=== PATIENT | male | born 1970 | race Caucasian/White ===

== ENCOUNTER 2019-01-29 23:33 | Emergency (ER) | payer MEDICAID ==
[~2019-01-29] VITALS: Ht 190.5 cm; Wt 100.0 kg
[~2019-01-29 23:33] MED LIST: RIVA15TA PO
[2019-01-29 23:35] VITALS: BP 162/101
[2019-01-29] MEDS ORDERED: LIDOcaine Viscous 15ml cup PO ONE (23:55)
[2019-01-29] MEDS ORDERED: mag hydrox/Alum hydrox/simeth 30ml oral suspension PO ONE (23:55)
[2019-01-29] MEDS ORDERED: pantoprazole 40mg Tablet.DR PO ONE (23:55)
[2019-01-30] MEDS ORDERED: PANT-47 PO (00:03)
--- NOTE | 2019-01-30 00:16 | NUR ---
Patient was give GI cocktail for epigastric pain, patient report some relief now.
[2019-01-30 00:21] LABS: BASOPHILS # (AUTO) 0.1 X10'3 (0-0.2); EOSINOPHILS # (AUTO) 0.2 X10'3 (0-0.9); EOSINOPHILS % (AUTO) 2.4 % (0-6); HEMATOCRIT 44.1 % (42.0-52.0); MEAN CORPUSCULAR HEMOGLOBIN 30.6 PG (27.0-31.0); MEAN CORPUSCULAR VOLUME 89.8 FL (78-98); MONOCYTES # (AUTO) 0.7 X10'3 (0-0.9); MONOCYTES % (AUTO) 8.4 % (2-12); NEUTROPHILS % (AUTO) 63.2 % (42-75); PLATELET COUNT 214 X10'3 (140-440); RED BLOOD COUNT 4.91 X10'6 (4.70-6.10); RED CELL DISTRIBUTION WIDTH 13.4 % (11.5-14.5); WHITE BLOOD COUNT 7.9 X10'3 (4.5-11.0)
--- NOTE | 2019-01-30 00:28 | NUR ---
Per JONAH Patel no need for UA.
[2019-01-30 00:31] LABS: ALANINE AMINOTRANSFERASE 46 U/L (12-78); ALBUMIN/GLOBULIN RATIO 1.1 (1.1-1.5); ALKALINE PHOSPHATASE 68 IU/L (46-116); ANION GAP 11 (8-16); ASPARTATE AMINO TRANSFERASE 11 U/L (10-37); BILIRUBIN,TOTAL 0.4 MG/DL (0.1-1.0); BLOOD UREA NITROGEN 24 MG/DL (7-18); BUN/CREATININE RATIO 16.9 (5.4-32.0); CALCIUM 9.1 MG/DL (8.5-10.1); CHLORIDE 101 MMOL/L (99-107); CREATININE 1.42 MG/DL (0.60-1.10); GLUCOSE 103 MG/DL (70-104); LIPASE 276 U/L (73-393); POTASSIUM 4.1 MMOL/L (3.5-5.1); SODIUM 139 MMOL/L (135-145); TOTAL CARBON DIOXIDE 27.3 MMOL/L (24-32); TOTAL PROTEIN 7.7 G/DL (6.4-8.2); eGFR 53 ML/MIN
== END 2019-01-30 01:01 | disposition home or self-care (01) ==
LOC: ER 23:33
DX: K29.00 Acute gastritis without bleeding (principal); Z86.718 Personal history of other venous thrombosis and embolism; Z79.899 Other long term (current) drug therapy
CPT/HCPCS: 36415; 80053; 83690; 84484; 85025; 85610; 93005; 99284

== ENCOUNTER 2022-02-12 10:52 | Emergency (ER) | payer MEDICAID ==
[~2022-02-12] VITALS: Ht 190.5 cm; Wt 104.5 kg
[~2022-02-12 10:52] MED LIST changes: +PANT-47 PO
--- NOTE | 2022-02-12 14:07 | NUR ---
Dr Gary in room with patient Addendum: 02/12/[address] at [address] Perdomo
[2022-02-12] MEDS ORDERED: normal saline 1000ML IV soln IVB ONE (14:20)
[2022-02-12] MEDS ORDERED: dexamethasone sod phosphate 10mg/ml inj IV STA (14:41)
[2022-02-12] MEDS ORDERED: REMDESIVIR INJ 200 MG in normal saline 100ml IV soln 100 ML IV ONE (14:45)
[2022-02-12 14:59] LABS: BASOPHILS # (AUTO) 0.1 X10'3 (0-0.2); BASOPHILS % (AUTO) 0.6 % (0-1); EOSINOPHILS % (AUTO) 0 % (0-6); HEMATOCRIT 48.6 % (42.0-52.0); HEMOGLOBIN 16.6 g/dl (14.0-17.9); LYMPHOCYTES # (AUTO) 0.7 X10'3 (1.1-4.8); LYMPHOCYTES % (AUTO) 6.2 % (21-51); MEAN CORPUSCULAR HEMOGLOBIN 30.6 PG (27.0-31.0); MEAN PLATELET VOLUME 7.8 FL (7.4-10.4); MONOCYTES # (AUTO) 1.3 X10'3 (0-0.9); MONOCYTES % (AUTO) 12.6 % (2-12); NEUTROPHILS # (AUTO) 8.5 X10'3 (1.8-7.7); NEUTROPHILS % (AUTO) 80.6 % (42-75); PLATELET COUNT 189 X10'3 (140-440); RED BLOOD COUNT 5.41 X10'6 (4.70-6.10); RED CELL DISTRIBUTION WIDTH 13.8 % (11.5-14.5); WHITE BLOOD COUNT 10.5 X10'3 (4.5-11.0)
[2022-02-12] MEDS ORDERED: acetaminophen 325mg tablet PO ONE (15:05)
[2022-02-12 15:12] LABS: ALANINE AMINOTRANSFERASE 60 U/L (12-78); ALBUMIN 4.3 G/DL (3.4-5.0); ALKALINE PHOSPHATASE 76 IU/L (46-116); ANION GAP 8 (8-16); ASPARTATE AMINO TRANSFERASE 26 U/L (10-37); BILIRUBIN,TOTAL 0.7 MG/DL (0.1-1.0); BLOOD UREA NITROGEN 16 MG/DL (7-18); BUN/CREATININE RATIO 13.7 (5.4-32.0); CALCIUM 9.1 MG/DL (8.5-10.1); CHLORIDE 101 MMOL/L (99-107); CREATININE 1.17 MG/DL (0.60-1.10); GLUCOSE 117 MG/DL (70-104); POTASSIUM 4.4 MMOL/L (3.5-5.1); SODIUM 139 MMOL/L (135-145); TOTAL CARBON DIOXIDE 29.9 MMOL/L (24-32); TOTAL PROTEIN 8.6 G/DL (6.4-8.2); eGFR 65 ML/MIN
--- NOTE | 2022-02-12 15:20 | NUR ---
Pt back from CT scan. Contacted pharm for Remdesivir, awaiting id approval per pharm
--- NOTE | 2022-02-12 15:28 | NUR ---
Positive covid confirmed via nasal swab. Dr Perdomo aware. Isolation cart provided infront of room. Pt is alwake, alert and orientedx4. Bx culturs/Procal drawn for fever. Tylenol given. Pt updated on tx plan. Monitoring ongoing
[2022-02-12] MEDS ORDERED: BUDE90AE IH (16:11)
[2022-02-12] MEDS ORDERED: DEXA6TAB6 PO (16:11)
[2022-02-12] MEDS ORDERED: BEBTELOVIMAB 175 MG/2 ML VIAL IV ONE (16:20)
[2022-02-12] MEDS ORDERED: LIDOcaine Viscous 15ml cup MM PRN (16:25)
--- NOTE | 2022-02-12 17:04 | NUR ---
Patient's temp >101, Dr Perdomo made aware. Pt received tylenol about an hr ago.
--- NOTE | 2022-02-12 17:38 | NUR ---
Pt's mother- Azul contacted to pick patient up at 1810 when discharged
[2022-02-12 18:34] VITALS: BP 130/88
== END 2022-02-12 18:40 | disposition home or self-care (01) ==
LOC: ER 10:54
DX: U07.1 COVID-19 (principal); R55 Syncope and collapse; Z79.899 Other long term (current) drug therapy
CPT/HCPCS: 36415; 71275; 80053; 83605; 83880; 84145; 84484; 85025; 87040; 87502; 87503; 93005; 96374; 99285; J1100; J3490; J7030; M0222; Q0222

== ENCOUNTER 2023-08-12 04:04 | Emergency (ER) | payer MEDICAID ==
[~2023-08-12] VITALS: Ht 193 cm; Wt 107.7 kg
[~2023-08-12 04:04] MED LIST changes: +BUDE90AE IH; +DEXA6TAB6 PO
[2023-08-12 04:05] VITALS: BP 158/99; PULSE 110; TEMP 99.8; O2SAT 98
[2023-08-12] MEDS ORDERED: NIRM1TAB7 PO (04:30)
[2023-08-12 04:46] VITALS: RESP 16
== END 2023-08-12 04:49 | disposition home or self-care (01) ==
LOC: ER 04:04
DX: U07.1 COVID-19 (principal); E78.00 Pure hypercholesterolemia, unspecified; Z79.899 Other long term (current) drug therapy
CPT/HCPCS: 99283